=== PATIENT | female | born 1990 | race Caucasian/White ===

== ENCOUNTER 2017-06-27 09:51 | Outpatient (CLI) | payer OTHER ==
[~2017-06-27] VITALS: Ht 154.9 cm; Wt 91.6 kg
[2017-06-27 10:10] VITALS: BP 133/90
[2017-06-27 10:33] VITALS: BP 123/75
[2017-06-27 11:02] LABS: MEAN CORPUSCULAR HEMOGLOBIN 29.6 pg (27.0-33.0); MEAN CORPUSCULAR HGB CONC 34.1 g/dl (32.0-36.5); MEAN CORPUSCULAR VOLUME 86.8 fl (80.0-96.0); RED CELL DISTRIBUTION WIDTH 13.8 % (11.5-14.5); WHITE BLOOD COUNT 10.4 10^3/uL (4.0-10.0)
[2017-06-27] MEDS ORDERED: LEVO50TA5 PO (11:17)
[2017-06-27] MEDS ORDERED: PRENTAB9 PO (11:17)
[2017-06-27 11:48] LABS: INR 0.92
--- NOTE | 2017-06-27 12:42 | REP ---
Obstetric ultrasound, stat request for placenta previa: There is a single intrauterine gestation in a breech presentation. There is movement and cardiac activity. heart rate is 156 beats per minute. The placenta is anterior, however the inferior margin of the placenta. Completely crosses the internal cervical os indicating a complete placenta previa. Subjectively the amniotic fluid volume is normal. The cervix measures 3.1 cm length. Maternal adnexa and cul-de-sac are unremarkable. By the ultrasound today gestational age is 24 weeks 4 days with an IESHA of 10/13/2017. By LMP gestational age is 24 weeks 0 days with an IESHA of 10/17/2017. weight is 695 grams (1 pound, 8 ounces). This is the 57th percentile for 24 weeks 0 days. The following anatomic structures are identified and are unremarkable: Intracranial lateral ventricles, choroid plexus, cisterna magna, cerebellum, cavum septum pellucidum, facial profile, lungs, cardiac right and left ventricular outflow tracts, diaphragm, stomach, cord insertion, three-vessel cord and bladder. Suboptimally demonstrated because of position are the upper lip and spine and upper lower extremities. On the four-chamber view of the heart. There is an echogenic focus within the left ventricle. This is most, a secondary to artifact from the chorda tendineae. Follow up of this structure on followup ultrasound is recommended. Impression: There is a complete placenta previa. There is an echogenic focus in the cardiac left ventricle, most likely artifact from the chorda tendineae. Follow-up recommended. Follow-up of anatomy as discussed. Signed by Addy Bennett MD 06/27/2017 12:34 P
== END 2017-06-27 13:00 | disposition home or self-care (01) ==
LOC: M LDO 09:51
PROVIDERS: ATTEND Obstetrics & Gynecology
DX: O44.02 Complete placenta previa NOS or without hemorrhage, second trimester (principal); Z3A.24 24 weeks gestation of pregnancy

== ENCOUNTER 2017-06-29 02:57 | Outpatient (CLI) | payer OTHER ==
[2017-06-29] VITALS (13 sets, daily range): BP systolic 87–138; BP diastolic 51–86
[~2017-06-29] VITALS: Ht 154.9 cm; Wt 91.0 kg
[~2017-06-29 02:57] MED LIST: LEVO50TA5 PO; PRENTAB9 PO
[2017-06-29] MEDS ORDERED: LACTATED RINGER'S 1000 ML IV ONE (03:30)
[2017-06-29 04:07] LABS: MEAN CORPUSCULAR HEMOGLOBIN 29.6 pg (27.0-33.0); MEAN CORPUSCULAR VOLUME 86.9 fl (80.0-96.0); RED CELL DISTRIBUTION WIDTH 13.8 % (11.5-14.5)
[2017-06-29] MEDS: LR 1,000 ML IV SCH ×2 (04:19→11:46)
== END 2017-06-29 17:15 | disposition home or self-care (01) ==
LOC: M LDO 02:57
PROVIDERS: ATTEND Obstetrics & Gynecology
DX: O26.852 Spotting complicating pregnancy, second trimester (principal); O44.12 Complete placenta previa with hemorrhage, second trimester; Z3A.24 24 weeks gestation of pregnancy

== ENCOUNTER 2017-07-03 17:09 | Outpatient (CLI) | payer OTHER ==
[~2017-07-03] VITALS: Ht 154.9 cm; Wt 94.3 kg
[2017-07-03 17:25] VITALS: BP 132/75
--- NOTE | 2017-07-03 17:48 | IPNPDOC ---
Date Seen The patient was seen on 07/03/17. Progress Note 27yo IESHA 10/17/17. Presents @ 25wks with bleeding from known placenta previa. Denies pain. Denies recent sexual activity. Has recently moved to [facility] and has been "organizing" the new home. IUI , transferred to [place] from [facility]. Has appt this week @ [facility]. FH 150, minimal variability. No UC. Abdomen soft, nontender. SSE large amount blood clot in vagina. Unable to adequately visualize cervix due to clot in vault. 3-4cm clot expelled with removal of speculum. Dr Rouse notified of pt status and requested to evaluate patient. Orders received. VS, I&O, 24H, Fishbone Vital Signs/I&O Vital Signs Date Time Temp Pulse Resp B/P (MAP) Pulse Ox O2 Delivery O2 Flow Rate FiO2 07/03/17 17:25 99.2 114 18 132/75 (94) 98 Room Air Melina Gandara CNM Jul 03, 2017 17:48
[2017-07-03] MEDS ORDERED: LACTATED RINGER'S 1000 ML IV ONE (18:00)
[2017-07-03] MEDS ORDERED: BETAMETHASONE SOLUSPAN 6MG/ML INJ 5ML (J0702) IM SCH (18:00)
[2017-07-03 18:16] LABS: BASO % 0.2 % (0.0-1.0); EOS # 0.1 10^3/uL (0.0-0.50); EOS % 0.6 % (0.0-3.0); IMMATURE GRANULOCYTE % 0.5 % (0-0); LYMPH # 3.5 10^3/uL (1.5-6.5); LYMPH % 26.5 % (24.0-44.0); MEAN CORPUSCULAR HEMOGLOBIN 29.4 pg (27.0-33.0); MEAN CORPUSCULAR HGB CONC 34.2 g/dl (32.0-36.5); MONO # 0.9 10^3/uL (0.0-0.8); MONO % 6.5 % (0.0-5.0); NEUTROPHILS # 8.6 10^3/uL (1.8-7.7); NEUTROPHILS % 65.7 % (36.0-66.0); PLATELET COUNT, AUTOMATED 380 10^3/uL (150-450); RED CELL DISTRIBUTION WIDTH 13.9 % (11.5-14.5); WHITE BLOOD COUNT 13.1 10^3/uL (4.0-10.0)
[2017-07-03 18:17] LABS: ADD MORPHOLOGY? NO
[2017-07-03 18:29] LABS: INR 0.89
[2017-07-03] MEDS ORDERED: LR 1,000 ML IV SCH (18:30)
[2017-07-03] MEDS ORDERED: MAG Sulf (L&D) 4 GM/100 ML 4 GM in APPROPRIATE DILUENT 1 EA IV ONE (19:00)
[2017-07-03] MEDS ORDERED: MAG Sulf (OBGYN) 20GM/500ML 20,000 MG in APPROPRIATE DILUENT 1 EA IV SCH (19:16)
[2017-07-03 21:59] LABS: MEAN CORPUSCULAR HEMOGLOBIN 29.5 pg (27.0-33.0); MEAN CORPUSCULAR HGB CONC 33.8 g/dl (32.0-36.5); MEAN CORPUSCULAR VOLUME 87.3 fl (80.0-96.0); RED CELL DISTRIBUTION WIDTH 14.1 % (11.5-14.5); WHITE BLOOD COUNT 15.5 10^3/uL (4.0-10.0)
== END 2017-07-03 23:20 | disposition short-term general hospital (02) ==
LOC: M LDO 17:09
PROVIDERS: ATTEND Advanced Practice Midwife
DX: O44.12 Complete placenta previa with hemorrhage, second trimester (principal); Z3A.25 25 weeks gestation of pregnancy
CPT/HCPCS: 36415; 80307; 85025; 85027; 85384; 85610; 85730; 86780; 86850; 86920; 96365; 96366; 96375; J0702; J3475

== ENCOUNTER → 2019-08-22 | Outpatient (CLI) | payer OTHER ==
[2019-08-22 13:07] LABS: BASO # 0.1 10^3/uL (0.0-0.2); BASO % 0.6 % (0.0-1.0); EOS # 0.1 10^3/uL (0.0-0.5); EOS % 0.8 % (0.0-3.0); HEMOGLOBIN 13.8 g/dl (12.0-15.5); LYMPH # 4.1 10^3/uL (1.5-5.0); MEAN CORPUSCULAR HGB CONC 32.1 g/dl (32.0-36.5); MEAN CORPUSCULAR VOLUME 87.2 fl (80.0-96.0); MONO # 0.6 10^3/uL (0.0-0.8); MONO % 5.9 % (0.0-5.0); NEUTROPHILS # 4.9 10^3/uL (1.5-8.5); NEUTROPHILS % 50.3 % (36.0-66.0); PLATELET COUNT, AUTOMATED 419 10^3/uL (150-450); RED BLOOD COUNT 4.93 10^6/uL (4.00-5.40); WHITE BLOOD COUNT 9.7 10^3/uL (4.0-10.0)
[2019-08-22 13:50] LABS: ALBUMIN 4.1 GM/DL (3.2-5.2); ALT/SGPT 51 U/L (12-78); BLOOD UREA NITROGEN 10 MG/DL (7-18); CALCIUM LEVEL 9.5 MG/DL (8.5-10.1); CARBON DIOXIDE LEVEL 28 MEQ/L (21-32); CHLORIDE LEVEL 103 MEQ/L (98-107); CREATININE FOR GFR 0.68 MG/DL (0.55-1.30); FREE T3 3.7 PG/ML (2.2-4.0); FREE T4 1.11 NG/DL (0.76-1.46); GLOMERULAR FILTRATION RATE > 60.0 (>60); GLUCOSE, FASTING 86 MG/DL (70-100); POTASSIUM SERUM 4.6 MEQ/L (3.5-5.1); SODIUM LEVEL 136 MEQ/L (136-145)
[2019-08-22 14:00] LABS: THYROID PEROXIDASE ANTIBODY 37.1 U/ML (<60.0)
== END ==
LOC: M LRY 10:35
PROVIDERS: ATTEND Physician Assistant
DX: E03.9 Hypothyroidism, unspecified (principal)

== ENCOUNTER → 2020-08-15 | Outpatient (REF) | payer OTHER ==
[2020-08-15 14:30] LABS: HEMATOCRIT 42.2 % (36.0-47.0); HEMOGLOBIN 13.4 g/dl (12.0-15.5); MEAN CORPUSCULAR HGB CONC 31.8 g/dl (32.0-36.5); MEAN CORPUSCULAR VOLUME 88.3 fl (80.0-96.0); PLATELET COUNT, AUTOMATED 378 10^3/uL (150-450); RED BLOOD COUNT 4.78 10^6/uL (4.00-5.40); WHITE BLOOD COUNT 11.5 10^3/uL (4.0-10.0)
[2020-08-15 15:07] LABS: ALT/SGPT 20 U/L (12-78); BILIRUBIN,TOTAL 0.6 MG/DL (0.2-1.0); CREATININE FOR GFR 0.71 MG/DL (0.55-1.30); GLOMERULAR FILTRATION RATE > 60.0 (>60); LDH LACTATE DEHYDROGENASE 151 U/L (84-246); URIC ACID 4.2 MG/DL (2.6-6.0)
[2020-08-15 15:14] LABS: HEMOGLOBIN A1c 6.3 %
[2020-08-15 15:18] LABS: TOTAL PROTEIN,RANDOM URINE 18.2 MG/DL (0.0-12.0)
[2020-08-15 15:50] LABS: HEPATITIS C VIRUS ABY INDEX 0.1 INDEX (<0.8)
[2020-08-15 15:51] LABS: HIV 1&2 SCREEN CENTAUR NEGATIVE (NEGATIVE)
== END ==
LOC: M PLALAB 09:30
PROVIDERS: ATTEND Advanced Practice Midwife
DX: O34.211 Maternal care for low transverse scar from previous cesarean delivery (principal); Z3A.00 Weeks of gestation of pregnancy not specified

== ENCOUNTER → 2020-08-19 | Outpatient (REF) | payer OTHER | LOC: M PLALAB 09:55 | PROVIDERS: ATTEND Advanced Practice Midwife | DX: O34.211 Maternal care for low transverse scar from previous cesarean delivery (principal) ==

== ENCOUNTER → 2020-08-26 | Outpatient (CLI) | payer OTHER | LOC: M PLALAB 10:39 | PROVIDERS: ATTEND Advanced Practice Midwife | DX: Z34.81 Encounter for supervision of other normal pregnancy, first trimester (principal) ==

== ENCOUNTER → 2020-09-04 | Outpatient (CLI) | payer OTHER | LOC: M PLALAB 15:09 | PROVIDERS: ATTEND Advanced Practice Midwife | DX: Z36.89 Encounter for other specified antenatal screening (principal) ==

== ENCOUNTER → 2020-10-21 | Outpatient (CLI) | payer OTHER | LOC: M WHC 15:20 | PROVIDERS: ATTEND Obstetrics & Gynecology | DX: Z3A.19 19 weeks gestation of pregnancy (principal) ==

== ENCOUNTER → 2020-10-23 | Outpatient (CLI) | payer OTHER | LOC: M WHC 12:35 | PROVIDERS: ATTEND Obstetrics & Gynecology | DX: Z34.82 Encounter for supervision of other normal pregnancy, second trimester (principal); Z3A.19 19 weeks gestation of pregnancy ==

== ENCOUNTER → 2020-10-29 | Outpatient (CLI) | payer OTHER ==
--- NOTE | 2020-10-29 11:31 | REP ---
INDICATION: ANATOMY. COMPARISON: None. TECHNIQUE: Transabdominal obstetric sonography. FINDINGS: Scanning through the gravid uterus demonstrates a viable single intrauterine gestation in cephalic lie. motion is observed and heart rate is recorded at 150 beats per minute. A posterior placenta is seen, grade 1, without evidence of placenta previa. Amniotic fluid is subjectively normal. Closed cervical length is measured at 3.1 cm transabdominally. No extrauterine abnormality is observed. Amniotic fluid is subjectively normal. No anomaly is seen. The following anatomic structures are identified and felt to be sonographically unremarkable: cranium, choroid plexus, cavum, cerebellum and posterior fossa, face and profile, lungs, four-chamber heart with left and right ventricular outflow tract views, diaphragm, left-sided stomach, abdominal wall cord insertion, three-vessel umbilical cord, kidneys and bladder, spine, and upper and lower extremities. Biometry chart: BPD 5.1 cm, 21 weeks 4 days Head circumference 18.4 cm, 20 weeks 5 days Abdominal circumference 16.4 cm, 21 weeks 3 days Femur length 3.3 cm, 20 weeks 1 day Humeral length 3.1 cm, 20 weeks 3 days HC AC ratio normal 1.12 Cephalic index normal 0.79 Estimated weight 385 g, 0 lb 13 oz, 56 percentile for 20 weeks 5 days IMPRESSION: Viable single intrauterine gestation at 20 weeks 6 days by today's composite sonographic criteria. IESHA by today's sonography March 12, 2021. No complication identified. <Electronically signed by Heber Gay > 10/29/20 [id number]
== END ==
LOC: M WHC 10:02
PROVIDERS: ATTEND Obstetrics & Gynecology
DX: Z34.92 Encounter for supervision of normal pregnancy, unspecified, second trimester (principal); Z3A.20 20 weeks gestation of pregnancy
CPT/HCPCS: 76811; G0463

== ENCOUNTER → 2020-11-28 | Outpatient (REF) | payer OTHER ==
[2020-11-28 14:47] LABS: HEMATOCRIT 35.1 % (36.0-47.0); HEMOGLOBIN 11.5 g/dl (12.0-15.5); MEAN CORPUSCULAR HEMOGLOBIN 29.2 pg (27.0-33.0); MEAN CORPUSCULAR HGB CONC 32.8 g/dl (32.0-36.5); MEAN CORPUSCULAR VOLUME 89.1 fl (80.0-96.0); PLATELET COUNT, AUTOMATED 325 10^3/uL (150-450); RED BLOOD COUNT 3.94 10^6/uL (4.00-5.40); WHITE BLOOD COUNT 11.7 10^3/uL (4.0-10.0)
== END ==
LOC: M PLALAB 11:49
PROVIDERS: ATTEND Obstetrics & Gynecology
DX: Z3A.25 25 weeks gestation of pregnancy (principal)

== ENCOUNTER → 2020-12-19 | Outpatient (CLI) | payer OTHER ==
--- NOTE | 2020-12-19 18:00 | REP ---
INDICATION: PRE EXISTING DIABETES,GROWTH. IESHA March 13, 2021. COMPARISON: Comparison study 29 October 2020.. TECHNIQUE: Transabdominal obstetric sonography. FINDINGS: Scanning through the gravid uterus demonstrates a viable single intrauterine gestation in cephalic lie. motion is observed and heart rate is recorded at 146 beats per minute. A posterior placenta is seen, grade 2, without evidence of placenta previa. Closed cervical length is measured at 3.5 cm transabdominally. No extrauterine abnormality is observed. Amniotic fluid is subjectively normal. CLARK is normal at 13.9 cm.. anatomic survey is not performed with this exam.. Biometry chart: BPD 7.3 cm, 29 weeks 3 days Head circumference 26.5 cm, 28 weeks 6 days Abdominal circumference 24.7 cm, 28 weeks 6 days Femur length 5.1 cm, 27 weeks 3 days Humeral length 4.6 cm, 27 weeks 0 days HC AC ratio normal 1.07 Cephalic index normal 0.79 Estimated weight 1228 g, 2 lb 11 oz, 55th percentile for 28 weeks 0 days IMPRESSION: Viable single intrauterine gestation at 28 weeks 2 days by today's composite sonographic criteria. IESHA by today's sonography March 11, 2021. No complication identified. Expected gestational age estimate based on IESHA of March 13, 2021 is 28 weeks 0 days. Appropriate interval growth. <Electronically signed by Heber Gay > 12/19/20 [id number]
== END ==
LOC: M WHC 10:39
PROVIDERS: ATTEND Obstetrics & Gynecology
DX: O24.313 Unspecified pre-existing diabetes mellitus in pregnancy, third trimester (principal); Z3A.28 28 weeks gestation of pregnancy

== ENCOUNTER → 2021-01-26 | Outpatient (CLI) | payer OTHER ==
--- NOTE | 2021-01-26 15:59 | REP ---
INDICATION: PRE EXISTING DIABETES,GROWTH. COMPARISON: 12/19/2020. TECHNIQUE: Real-time sonographic evaluation of the gravid uterus performed. FINDINGS: Estimated gestational age is33 weeks 3 days, EDC 03/13/2021. Today's measurements indicate greater than expected growth. Presentation: Cephalic Placenta posterior, grade 2, without evidence of placenta previa. heart rate is recorded at 132 beats per minute. Amniotic fluid is subjectively normal. CLARK 14.9, normal range 8.2-24.6. Biometry chart: BPD: 90 mm, 36 weeks 4 days, 94th percentile. HC: 324 mm, 36 weeks 5 days, greater than 95th percentile AC: 325 mm, 36 weeks 3 days, 95th percentile Femur length: 65 mm, 33 weeks 2 days, 48th percentile HC to AC ratio: 1.00, normal range 0.95-1.13. Estimated weight: 2739g, greater than 97th percentile. SD ratio umbilical artery 2.09, normal range 1.76-3.73. RI 0.52, normal range 0.48-0.74. IMPRESSION: Viable single intrauterine gestation as above. Greater than expected growth as detailed above. Estimated weight on the prior study was at the 55th percentile. <Electronically signed by Addy Bradford > 01/26/21 [id number]
== END ==
LOC: M WHC 13:31
PROVIDERS: ATTEND Obstetrics & Gynecology
DX: Z36.9 Encounter for antenatal screening, unspecified (principal); O24.313 Unspecified pre-existing diabetes mellitus in pregnancy, third trimester; O36.63X0 Maternal care for excessive fetal growth, third trimester, not applicable or unspecified; Z3A.33 33 weeks gestation of pregnancy

== ENCOUNTER → 2021-02-05 | Outpatient (REF) | payer OTHER ==
[~2021-02-05] MED LIST changes: +DOK1CAP7 PO; +ECOT81TA5 PO; +IBUP80TA PO; +INSUDET SC; +NOVOINJ3 SC; +OXYC1TAB23 PO
== END ==
LOC: M SFHCWAGY 15:05
PROVIDERS: ATTEND Obstetrics & Gynecology
DX: O24.313 Unspecified pre-existing diabetes mellitus in pregnancy, third trimester (principal); Z3A.00 Weeks of gestation of pregnancy not specified
CPT/HCPCS: 59025; 87081; G0463

== ENCOUNTER 2021-02-06 16:26 | Outpatient (CLI) | payer OTHER ==
[~2021-02-06] VITALS: Ht 154.9 cm; Wt 95.7 kg
[~2021-02-06 16:26] MED LIST changes: -DOK1CAP7 PO; -IBUP80TA PO; -NOVOINJ3 SC; -OXYC1TAB23 PO
[2021-02-06] MEDS ORDERED: NOVOINJ3 SC (16:45)
[2021-02-06 16:46] VITALS: BP 125/66
[2021-02-06] MEDS ORDERED: BETAMETHASONE SOLUSPAN 6MG/ML 5ML VIAL (J0702 PER 3MG) IM ONE (17:00)
[2021-02-06 17:15] VITALS: BP 130/65
--- NOTE | 2021-02-06 17:26 | IPNPDOC ---
Text Note Date of Service The patient was seen on 02/06/21. NOTE Outpatient 30yo IEHSA 03/13/2021. Presents at 35 wks for betamethasone #1. History significant for prior classical at 25wks. Repeat scheduled next Tuesday. Cat I tracing Rare UC No complaints Discharged home. Aware she needs 2nd injection tomorrow Warnings reviwed. VS,Fishbone, I+O VS, Fishbone, I+O Vital Signs Date Time Temp Pulse Resp B/P (MAP) Pulse Ox O2 Delivery O2 Flow Rate FiO2 02/06/21 16:46 99.0 93 18 125/66 (85) Melina Gandara CNM February 06, 2021 17:22
== END 2021-02-06 17:27 | disposition home or self-care (01) ==
LOC: M LDO 16:26
PROVIDERS: ATTEND Advanced Practice Midwife
DX: O34.218 Maternal care for other type scar from previous cesarean delivery (principal); Z3A.35 35 weeks gestation of pregnancy
CPT/HCPCS: 96372; G0378; J0702

== ENCOUNTER 2021-02-07 16:47 | Outpatient (CLI) | payer OTHER ==
[~2021-02-07] VITALS: Ht 154.9 cm; Wt 96.7 kg
[~2021-02-07 16:47] MED LIST changes: +NOVOINJ3 SC
[2021-02-07] MEDS ORDERED: BETAMETHASONE SOLUSPAN 6MG/ML 5ML VIAL (J0702 PER 3MG) IM ONE (16:55)
[2021-02-07 17:01] VITALS: BP 128/77
--- NOTE | 2021-02-07 20:45 | IPNPDOC ---
Text Note Date of Service The patient was seen on 02/07/21. NOTE S: 31yo at 35w1d presents for 2nd betamethasone. h/o classical incision and pregestational DM. Has no complaints O vss -betamethasone given without issues A/P: 31yo at 35w1d s/p 2nd betamethasone -f/u at OB appt Ade Medrano MD VS,Alfreda, I+O VS, Alfreda, I+O Vital Signs Date Time Temp Pulse Resp B/P (MAP) Pulse Ox O2 Delivery O2 Flow Rate FiO2 02/07/21 17:01 98.8 114 18 128/77 (94) ADE MEDRANO MD. February 07, 2021 20:45
== END 2021-02-07 17:09 | disposition home or self-care (01) ==
LOC: M LDO 16:47
PROVIDERS: ATTEND Obstetrics & Gynecology
DX: O24.113 Pre-existing type 2 diabetes mellitus, in pregnancy, third trimester (principal); Z3A.35 35 weeks gestation of pregnancy; O34.218 Maternal care for other type scar from previous cesarean delivery
CPT/HCPCS: 96372; G0378; J0702

== ENCOUNTER → 2021-02-08 | Outpatient (CLI) | payer OTHER | LOC: M LABSMTC 08:10 | PROVIDERS: ATTEND Anesthesiology | DX: Z01.812 Encounter for preprocedural laboratory examination (principal); Z20.822 Contact with and (suspected) exposure to COVID-19 ==

== ENCOUNTER 2021-02-13 05:09 | Inpatient (IN) | payer OTHER ==
[~2021-02-13] VITALS: Ht 154.9 cm; Wt 93.8 kg
[2021-02-13 05:40] VITALS: BP 130/71
[2021-02-13] MEDS ORDERED: LR 1,000 ML IV ONE (06:00)
[2021-02-13] MEDS ORDERED: ceFAZolin SOD 2 GM in IV 1 EA IV ONE (06:00)
[2021-02-13] MEDS ORDERED: BICITRA 30ML SOLN UDC PO ONE (06:00)
[2021-02-13 06:33] LABS: HEMATOCRIT 33.1 % (36.0-47.0); HEMOGLOBIN 10.8 g/dl (12.0-15.5); MEAN CORPUSCULAR HEMOGLOBIN 27.5 pg (27.0-33.0); MEAN CORPUSCULAR HGB CONC 32.6 g/dl (32.0-36.5); MEAN CORPUSCULAR VOLUME 84.2 fl (80.0-96.0); PLATELET COUNT, AUTOMATED 285 10^3/uL (150-450); RED BLOOD COUNT 3.93 10^6/uL (4.00-5.40); WHITE BLOOD COUNT 9.7 10^3/uL (4.0-10.0)
[2021-02-13] MEDS ORDERED: LR 1,000 ML IV SCH ×2 (07:00→09:35)
[2021-02-13 07:05] VITALS: BP 115/66
[2021-02-13] MEDS ORDERED: OXYTOCIN INJ 10 UNITS/ML VIAL (J2590) As Ordered ONE ×2 (07:05→07:06)
[2021-02-13] MEDS ORDERED: MORPHINE PRES-FREE INJ 10 MG/10 ML VIAL (J2274) As Ordered ONE (07:06)
[2021-02-13] MEDS ORDERED: NALBUPHINE HCL 10 MG/ML AMP (J2300) IV PRN (08:34)
[2021-02-13] MEDS ORDERED: NALOXONE INJ 0.4MG/1ML VIAL (J2310 PER 1MG) IV PRN ×2 (08:34)
[2021-02-13] MEDS ORDERED: METOCLOPRAMIDE INJ 10MG/2ML VIAL (J2765 PER 1) IV PRN (08:34)
[2021-02-13] MEDS ORDERED: diphenhydrAMINE 50MG/ML VIAL (J1200) IV PRN (08:34)
[2021-02-13] MEDS ORDERED: ONDANSETRON 4MG/2ML VIAL IV PRN ×2 (08:34→09:55)
[2021-02-13] MEDS ORDERED: PHENYLephrine 500MCG 5ML (100MCG/ML) SYRINGE As Ordered ONE ×2 (08:38→08:53)
[2021-02-13] MEDS ORDERED: dexameTHASONE 4 MG/ML 1ML VIAL (J1100 PER 1MG) As Ordered ONE (08:56)
[2021-02-13] MEDS ORDERED: ONDANSETRON 4MG/2ML VIAL As Ordered ONE (08:56)
[2021-02-13] MEDS ORDERED: KETOROLAC 60MG 2ML VIAL As Ordered ONE (09:14)
[2021-02-13] MEDS ORDERED: PERCOCET 5MG/325MG TAB PO PRN ×2 (09:35)
[2021-02-13] MEDS ORDERED: SIMETHICONE 80MG CHEW TAB PO PRN (09:35)
[2021-02-13] MEDS ORDERED: RHOGAM 300 MCG (1500 IU) INJ (J2790) IM SCH (09:35)
[2021-02-13] MEDS ORDERED: MEASLES,MUMPS,RUBELLA VACCINE INJ (MMR-II) (90707) SC SCH (09:35)
[2021-02-13] MEDS ORDERED: ACETAMINOPHEN 500 MG TAB PO PRN (09:35)
[2021-02-13] MEDS ORDERED: OXYTOCIN DRIP 30 UNITS in IV 1 EA IV SCH (09:35)
[2021-02-13] MEDS ORDERED: OXYC1TAB23 PO (09:37)
[2021-02-13] MEDS ORDERED: DOK1CAP7 PO (09:38)
[2021-02-13] MEDS ORDERED: IBUP80TA PO (09:38)
--- NOTE | 2021-02-13 09:41 | ROOPDOC ---
[facility] Report Of Operation Report of Operation DATE OF PROCEDURE: 02/13/2021 PREPROCEDURE DIAGNOSES: 36+ weeks EGA, h/o classical section, IDDM POSTPROCEDURE DIAGNOSES: same PROCEDURE: Repeat low transverse section SURGEON: Yonatan Rouse DO FACOG MANAGER BEHAVIORAL: Ade Medrano MD FACOG (Essential role in retraction, extraction, and closure of all tissue layers) ANESTHESIA: Spinal ESTIMATED BLOOD LOSS: 500 mL. IV FLUIDS: 1000 mL LR URINE OUTPUT: 100 mL COMPLICATIONS: None. PREOPERATIVE ANTIBIOTICS: Ancef 2g IV x 1 COMPLICATIONS: none DATA: Apgars 9 and 9. Birthweight 3280 g, 7 lbs 4 oz. SPECIMENS: none PRIMARY INDICATION FOR : h/o classical section. DESCRIPTION OF PROCEDURE: The patient was counseled on the risks, benefits, indications and alternatives of the procedure. Informed consent was obtained. She was taken to the operating room with IV running and placed on the operating table in the dorsal supine position with a leftward tilt. Regional anesthesia was found to be adequate. Sequential compression devices were placed on the lower extremities. A Trejo catheter was placed under sterile conditions. She was prepared and draped in normal sterile fashion. A time out was performed per protocol. Regional anesthesia was again found to be adequate. A Pfannenstiel skin incision was made with the 10 blade. The 10 blade was used to dissect down to the level of the rectus sheath fascia. The rectus sheath pressure was incised midline and this was extended bilaterally with Parker scissors , and manual stretch. The rectus muscle bellies were dissected off the rectus sheath fascia superiorly and inferiorly using both sharp and blunt dissection. The midline was identified. The peritoneum was identified and entered digitally. The peritoneal opening was extended with manual stretch. The Mobius retractor was placed. The vesicouterine peritoneum was dissected with Metzenbaum scissors to create the bladder flap. A low transverse uterine incision was made with the 10 blade. This was extended with manual stretch. The amniotic sac was punctured, and clear fluid was noted. The baby delivered through the hysterotomy without difficulty. The cord was doubly clamped and cut, and the baby was handed off to awaiting care. data shown above. The placenta was removed manually. The intrauterine cavity was cleared of all clot and debris. The hysterotomy was closed with 0 Vicryl in running locked fashion. This was reinforced with a second imbricating layer using 0 Vicryl in running fashion. Excellent hemostasis of the hysterotomy was noted. The pelvis was irrigated and the fluid suctioned. The Mobius retractor was removed. The peritoneum was closed with 3-0 Vicryl running fashion. The rectus muscle bellies were reapproximated with interrupted stitches using 3-0 Vicryl. The rectus muscles bellies were hemostatic. The rectus sheath fascia was closed with 0 Vicryl running fashion. The subcutaneous layer was irrigated and the fluid suctioned. Small bleeding vessels were cauterized with Bovie. Excellent hemostasis was noted. The subcutaneous layer was reapproximated with 3-0 Vicryl running fashion. Skin was closed with 3-0 Monocryl in subcuticular fashion. An Optifoam bandage was placed over the closed incision. Sponge, needle and instrument counts were correct per protocol throughout the procedure. The patient tolerated the entire procedure very well. She was transferred to the PACU in stable condition. DO AMINTA Tracy JONATHAN R. DO February 13, 2021 09:41
[2021-02-13] MEDS ORDERED: fentaNYL 100 MCG/2 ML INJECTION (J3010) IV PRN (09:55)
[2021-02-13] MEDS ORDERED: oxyCODONE 5MG TAB PO PRN (09:55)
[2021-02-13] MEDS ORDERED: OXYTOCIN 30 UNITS IN 0.9% NaCl 500ML IV BAG (J2590) As Ordered ONE (10:10)
[2021-02-13] MEDS ORDERED: oxyCODONE 5MG TAB As Ordered ONE (11:07)
[2021-02-13 11:30] VITALS: BP 100/63
[2021-02-13 12:00] VITALS: BP 103/60
[2021-02-13 13:00] VITALS: BP 109/65
[2021-02-13 14:00] VITALS: BP 122/65
[2021-02-13] MEDS ORDERED: KETOROLAC 30 MG/ML 1ML VIAL IV SCH (15:00)
[2021-02-13] MEDS: KETOROLAC 30 MG/ML 1ML VIAL IV SCH ×2 (15:54→22:50)
[2021-02-13] MEDS: PRENATAL VITAMINS CHEWABLE TABLET PO SCH (15:55)
[2021-02-13] MEDS: HumaLOG INSULIN (NovoLOG) PER UNIT SC SCH (21:00)
[2021-02-13] MEDS: DOCUSATE SODIUM 100MG CAPSULE PO SCH (22:49)
[2021-02-14] MEDS: KETOROLAC 30 MG/ML 1ML VIAL IV SCH (04:36)
[2021-02-14 05:42] VITALS: BP 104/55
--- NOTE | 2021-02-14 07:59 | IPNPDOC ---
Text Note Date of Service The patient was seen on 02/14/21. NOTE PO #1 Feels well. Adequate pain management. Voiding. VSS, afebrile, normotensive Breasts soft, pumping Fundus firm Dressing dry, intact Lochia rubra scant without odor PO #1 Routine care. Consider discharge in am VS,Fishbone, I+O VS, Fishbone, I+O Vital Signs Date Time Temp Pulse Resp B/P (MAP) Pulse Ox O2 Delivery O2 Flow Rate FiO2 02/14/21 05:42 97.8 105 16 104/55 (71) 97 Room Air I&O- Last 24 Hours up to 6 AM 02/14/21 06:00 Intake Total 2460 ml Output Total 1960 ml Balance 500 ml Melina Gandara CNM February 14, 2021 07:58
[2021-02-14 08:53] LABS: HEMATOCRIT 31.1 % (36.0-47.0); HEMOGLOBIN 9.7 g/dl (12.0-15.5); MEAN CORPUSCULAR HEMOGLOBIN 26.7 pg (27.0-33.0); MEAN CORPUSCULAR HGB CONC 31.2 g/dl (32.0-36.5); MEAN CORPUSCULAR VOLUME 85.7 fl (80.0-96.0); PLATELET COUNT, AUTOMATED 259 10^3/uL (150-450); RED BLOOD COUNT 3.63 10^6/uL (4.00-5.40); WHITE BLOOD COUNT 14.3 10^3/uL (4.0-10.0)
[2021-02-14] MEDS ORDERED: PRENATAL VITAMINS CHEWABLE TABLET PO SCH (09:00)
[2021-02-14 10:00] VITALS: BP 120/64
[2021-02-14] MEDS ORDERED: IBUPROFEN 800 MG TAB PO SCH (11:00)
[2021-02-14] MEDS: PRENATAL VITAMINS CHEWABLE TABLET PO SCH (13:21)
[2021-02-14] MEDS: IBUPROFEN 800 MG TAB PO SCH ×2 (13:21→20:12)
[2021-02-14] MEDS: DOCUSATE SODIUM 100MG CAPSULE PO SCH ×2 (13:21→20:11)
[2021-02-14 14:00] VITALS: BP 123/68
[2021-02-14] MEDS: HumaLOG INSULIN (NovoLOG) PER UNIT SC SCH (20:12)
[2021-02-14 22:00] VITALS: BP 139/81
[2021-02-15] MEDS: IBUPROFEN 800 MG TAB PO SCH ×2 (05:12→14:16)
[2021-02-15 06:00] VITALS: BP 128/74
[2021-02-15] MEDS: DOCUSATE SODIUM 100MG CAPSULE PO SCH (09:15)
[2021-02-15] MEDS: PRENATAL VITAMINS CHEWABLE TABLET PO SCH (09:15)
--- NOTE | 2021-02-15 13:00 | IPNPDOC ---
Progress Note Date of Service: February 15, 2021 Day#: 2 Progress Note POD 2 SUBJECT: Kristi is a 30yo s/p uncomplicated RLTCS at 36+ weeks for history of prior classical section, doing well /post-op day # 2. She also has pre-existing DM and is taking 16u lispro insulin qhs. She has been ambulating without lightheadedness/dizziness, voiding spontaneously without issue and tolerating regular diet. She is breast pumping but not making much millk yet, so formula feeding. Reports lochia is like a normal period. No f/c/n/v/CP/SOB. OBJECTIVE: VITAL SIGNS: Within normal limits, afebrile. Alert and oriented times three. Abdomen: Fundus firm at U-2. Soft, NTTP. Pfannenstiel incision covered by dry/clean optifoam dressing. No surrounding erythema/induration. Extremities: no pain with palpation of calves Labs: pre-op H/H 10.8/33.1 post-op H/H 9.7/31.1 blood glucose levels postprandial 02/13: 100, 181, 138 ASSESSMENT: Kristi is a 30yo s/p uncomplicated RLTCS at 36+ weeks for history of prior classical section, doing well /post-op day # 2. Vitals within normal limits, afebrile, hemodynamically stable with no eviden ce of infection. PLAN: 1. Discharge to home today 2. Motrin for pain with percocet prn. Colace for bowel regimen. 3. Encourage breast feeding and ambulation and use of IS 4. Regular diet 5. Keep incision clean and dry, remove optifoam and steri strips in 1 week 6. Follow up visit in office in 2 weeks for incision check 7. No heavy lifting and vaginal rest 6 weeks 8. Return precautions discussed 9. Continue QHS insulin 16u Bettye Hill MD VS, I&O, 24H, Fishbone Vital Signs/I&O Vital Signs Date Time Temp Pulse Resp B/P (MAP) Pulse Ox O2 Delivery O2 Flow Rate FiO2 02/15/21 06:00 98.1 103 16 128/74 (92) 02/14/21 22:00 98 Room Air Bettye Hill MD February 15, 2021 13:00
--- NOTE | 2021-02-15 13:03 | DS.PDOC ---
Discharge Summary General Date of Admission February 13, 2021 at 05:09 Date of Discharge February 15, 2021 Attending Physician: ELIAN BECERRA DO Discharge Summary PROCEDURES PERFORMED DURING STAY: repeat low transverse section ADMITTING DIAGNOSES: 1. 36+ weeks SIUP with history of prior classical 2. pre-existing diabetes on insulin DISCHARGE DIAGNOSES: 1. 36+ weeks SIUP with history of prior classical section, delivered via RLTCS 2. pre-existing diabetes on insulin COMPLICATIONS/CHIEF COMPLAINT: Classical Incision. HISTORY OF PRESENT ILLNESS/HOSPITAL COURSE: Kristi is a 30yo s/p uncomplicated RLTCS at 36+ weeks for history of prior classical section, doing well /post-op day # 2. She has pre- existing DM and is taking 16u lispro insulin qhs with adequate glucose control in the period. She has had an overall benign post-op course and at time of discharge, vitals are within normal limits, she is afebrile, hemodynamically stable with no evidence of infection. DISCHARGE MEDICATIONS: Please see below. ALLERGIES: Please see below. PHYSICAL EXAMINATION ON DISCHARGE: VITAL SIGNS: Within normal limits, afebrile. Alert and oriented times three. Abdomen: Fundus firm at U-2. Soft, NTTP. Pfannenstiel incision covered by dry/clean optifoam dressing. No surrounding erythema/induration. Extremities: no pain with palpation of calves LABORATORY DATA: Please see below. pre-op H/H 10.8/33.1 post-op H/H 9.7/31.1 blood glucose levels 02/13: 100, 181, 138 DIET: regular DISCHARGE PLAN/INSTRUCTIONS: 1. Discharge to home today 2. Motrin for pain with percocet prn. Colace for bowel regimen. 3. Encourage breast feeding and ambulation and use of IS 4. Regular diet 5. Keep incision clean and dry, remove optifoam and steri strips in 1 week 6. Follow up visit in office in 2 weeks for incision check 7. No heavy lifting and vaginal rest 6 weeks 8. Return precautions discussed 9. Continue QHS insulin 16u DISCHARGE CONDITION: Stable TIME SPENT ON DISCHARGE: Greater than 30 minutes. Bettye Hill MD Vital Signs/I&Os Vital Signs Date Time Temp Pulse Resp B/P (MAP) Pulse Ox O2 Delivery O2 Flow Rate FiO2 02/15/21 06:00 98.1 103 16 128/74 (92) 02/14/21 22:00 98 Room Air Discharge Medications Scheduled Docusate Sodium (Dok) 100 Mg Capsule, 100 MG PO BID Ibuprofen (Ibuprofen) 800 Mg Tablet, 800 MG PO Q8H Insulin Aspart (Novolog Flexpen) 100 Unit/1 Ml Insuln.pen, 16 UNITS SC QHS, (Reported) No.137/Iron/Folic Acd ( Vitamin Tablet) 1 Tab Tab, 1 TAB PO DAILY, (Reported) Scheduled PRN Oxycodone HCl/Acetaminophen (Oxycodone-Acetaminophen 5-325) 1 Each Tablet, 1 TAB PO QIDP PRN for pain Allergies Coded Allergies: No Known Allergies (Unverified , 06/27/17) PER PATIENT Bettye Hill MD February 15, 2021 13:03
== END 2021-02-15 14:30 | disposition home or self-care (01) | DRG 771 ==
LOC: M LDI 05:09 → M OBS 11:30
PROVIDERS: ADMIT Obstetrics & Gynecology; ATTEND Obstetrics & Gynecology
PROC: 10D00Z1 Extraction of Products of Conception, Low, Open Approach (ICD-10-PCS; principal; 2021-02-13 07:30)
DX: O34.211 Maternal care for low transverse scar from previous cesarean delivery (principal); O24.12 Pre-existing type 2 diabetes mellitus, in childbirth; Z3A.36 36 weeks gestation of pregnancy; Z37.0 Single live birth; E11.65 Type 2 diabetes mellitus with hyperglycemia; Z79.4 Long term (current) use of insulin

== ENCOUNTER → 2021-08-17 | Outpatient (REF) | payer OTHER ==
[~2021-08-17] MED LIST changes: +DOK1CAP4 PO; +IBUP80TA PO; +OXYC1TAB23 PO
== END ==
LOC: M SFHCWAGY 18:49
PROVIDERS: ATTEND Obstetrics & Gynecology
DX: Z12.4 Encounter for screening for malignant neoplasm of cervix (principal)

== ENCOUNTER → 2021-09-17 | Outpatient (CLI) | payer OTHER ==
--- NOTE | 2021-09-17 12:06 | REP ---
INDICATION: DIAG RIGHT LUMP OF RIGHT BREAST COMPARISON: None TECHNIQUE: Realtime grayscale ultrasound examination using linear high-frequency transducer. FINDINGS: Directed ultrasound examination of the right axillary region at the site of palpable mass demonstrates 2.8 x 1.0 x 2.4 cm ovoid structure compatible with normal appearing lymph node. Smaller adjacent lymph nodes are also identified. IMPRESSION: Palpable mass corresponds to lymph node. <Electronically signed by Neil Thomson > 09/17/21 [id number]
--- NOTE | 2021-09-17 14:02 | REP ---
INDICATION: DIAG RIGHT LUMP OF RIGHT BREAST. COMPARISON: This is the patient's baseline mammogram. TECHNIQUE: 2D and 3D cc, exaggerated CC and MLO views of the right breast were obtained. Targeted ultrasound of the right breast was performed. FINDINGS: The Volpara volumetric breast density pattern is B, there are scattered areas of fibroglandular density. There is a radiopaque triangle marking the location of the palpable abnormality in the right axilla. The area marked with the skin marker is a normal appearing axillary lymph node. There are no suspicious calcifications, dominant masses or areas of architectural distortion in the right breast. Right breast ultrasound: Targeted ultrasound of the palpable abnormality in the right axilla demonstrates normal axillary lymph nodes. IMPRESSION: BIRADS/ACR : Category 1: Negative. This patient's Tyrer-Cuzick lifetime breast cancer risk assessment score is 14.6%. This mammogram was interpreted with the aid of an FDA-approved computer-aided detection system. The patient states she has not had a clinical breast exam in greater than 1 year. The patient letter being requested is M1. RECOMMENDATION: The patient does not need a screening mammogram until age 40. <Electronically signed by Andrae Leslie > 09/17/21 [id number]
== END ==
LOC: M WHC 08:53
PROVIDERS: ATTEND Obstetrics & Gynecology
DX: N63.10 Unspecified lump in the right breast, unspecified quadrant (principal)